=== PATIENT | male | born 1965 | race Caucasian/White ===

== ENCOUNTER → 2022-08-13 11:29 | Outpatient (CLI) | payer OTHER, SELFPAY ==
--- NOTE | 2022-08-13 | DI.CT.S_ITS ---
PROCEDURE: CT CHEST ABDOMEN W CON INDICATIONS: conjunctival lesion TECHNIQUE: After the administration of oral contrast and intravenous contrast, 5 mm thick sections acquired from the lung apices to the iliac crests. 5 mm coronal and sagittal reformats were performed, with additional 7 mm coronal MIP reformats through the lungs. For radiation dose reduction, the following was used: automated exposure control, adjustment of mA and/or kV according to patient size. COMPARISON: None. FINDINGS: Image quality: Excellent. CHEST: Lungs and pleura: Small calcified granuloma in the right upper lobe. Bibasilar atelectasis. No acute air space opacities. No pleural effusions or pneumothorax. Central and peripheral airways are patent and normal in caliber. Mediastinum: Heart size is normal. No pericardial effusion. No mediastinal or hilar adenopathy by size criteria. Thoracic aorta and central pulmonary arteries are normal in size. Esophagus is normal in caliber. No hiatal hernia. Chest wall: No axillary or supraclavicular adenopathy by size criteria. Thyroid gland is unremarkable. ABDOMEN: Solid organs: Liver is normal in size and enhancement. Tiny hypodensity in the liver, (2/62). Likely a benign cyst or hemangioma. Gallbladder is unremarkable. Biliary system is non dilated. Pancreas enhances normally. Spleen is normal in size and enhancement. No adrenal nodules. Kidneys are normal in size and enhancement, without hydronephrosis. Peritoneum and bowel: Bowel loops demonstrate normal wall thickness and caliber. No free fluid or air. Nodes and vessels: No retroperitoneal or mesenteric adenopathy by size criteria. Aorta and inferior vena cava are normal in caliber. Bones: No suspicious bony lesions. No vertebral body compression fractures. Miscellaneous: No ventral hernias. IMPRESSION: Right upper lobe calcified granuloma. No enlarged lymph nodes. Dictated by: Paco Sexton M.D. on 08/13/2022 at 17:35 Approved by: Paco Sexton M.D. on 08/13/2022 at 17:45
== END ==
PROVIDERS: PCP Physician Assistant; Referring Provider Ophthalmology; Visit Provider Ophthalmology
DX: H11.9 Unspecified disorder of conjunctiva (principal); J98.4 Other disorders of lung
CPT/HCPCS: 71260; 74160; Q9967

== ENCOUNTER → 2023-08-30 08:21 | Outpatient (CLI) | payer OTHER, SELFPAY ==
--- NOTE | 2023-08-30 | DI.US.S_ITS ---
PROCEDURE: US ABDOMEN COMPLETE INDICATIONS: MONOCLONAL GAMMOPATHY TECHNIQUE: Real-time scanning was performed of the abdominal and retroperitoneal organs, with image documentation. COMPARISON: None. FINDINGS: Liver: Liver is mildly enlarged in size at 17.2 centimeter and homogeneous in echotexture. Gallbladder: No stones, wall thickening or pericholecystic fluid. Sonographic Mistry sign is negative. Biliary ducts: Intrahepatic bile ducts are non-dilated. Extrahepatic bile duct caliber measures 2.8 mm. Normal is 6-7 mm or less in diameter, or 10 mm or less post-cholecystectomy. Pancreas: Visualized portions of the pancreas are sonographically normal. Spleen: Spleen is normal in size and homogeneous in echotexture. Kidneys: Kidneys are normal in size and echotexture. Right kidney measures 11.1 cm long; left kidney measures 10.6 cm long. No hydronephrosis or nephrolithiasis. No solid masses. Aorta: Visualized aorta is normal in caliber at less than 3 cm. Iliacs: Proximal common iliac arteries are normal in caliber at less than 2.5 cm. IVC: Intrahepatic inferior vena cava is patent. Miscellaneous: No free abdominal fluid. IMPRESSION: Mildly enlarged liver at 17.2 centimeters. Remainder of sonographic exam is normal. Approved by: Kim Head M.D. on 08/30/2023 at 12:21
--- NOTE | 2023-08-30 | DI.RAD.S_ITS ---
PROCEDURE: XR BONE SURVEY INDICATIONS: MGUS lgM check for lytic lesions TECHNIQUE: Multiple views obtained of various bony structures as described below. COMPARISON: [facility], CT, CT CHEST ABDOMEN W CON, 08/13/2022, 13:15. FINDINGS: Skull (lateral): No suspicious bony lesions. No fractures. Thoracic spine (AP, lateral): No suspicious bony lesions. No acute vertebral body compression fractures. Trace dextroconvex curvature of the midthoracic spine. Lumbar spine (AP, lateral): No suspicious bony lesions. No acute vertebral body compression fractures. Pelvis (AP): No suspicious bony lesions. No fractures. Overlying soft tissues appear unremarkable. Right and left humeri (AP): No suspicious bony lesions. No fractures. Overlying soft tissues appear unremarkable. Right and left femurs (AP): No suspicious bony lesions. No fractures. Overlying soft tissues appear unremarkable. IMPRESSION: No focal lytic lesion is seen radiographically. Approved by: Roberto Vasquez M.D. on 09/03/2023 at 10:32
== END ==
PROVIDERS: PCP Family Medicine; Referring Provider Internal Medicine Hematology & Oncology; Visit Provider Internal Medicine Hematology & Oncology
DX: D47.2 Monoclonal gammopathy (principal); R16.0 Hepatomegaly, not elsewhere classified
CPT/HCPCS: 76700; 77075